=== PATIENT | male | born 1995 | race African-American/Black ===

== ENCOUNTER 2022-06-16 11:50 | Emergency (ER) | payer MEDICARE ==
[~2022-06-16] VITALS: Ht 172.7 cm; Wt 59.0 kg
[2022-06-16 12:06] VITALS: BP 126/76
[2022-06-16] MEDS ORDERED: ONDANSETRON 4MG ODT PO ONE (12:30)
[2022-06-16] MEDS ORDERED: ONDA4TAB50 PO (12:44)
== END 2022-06-16 13:19 | disposition home or self-care (01) ==
LOC: ER 12:42
DX: R11.2 Nausea with vomiting, unspecified (principal); R42 Dizziness and giddiness; H54.7 Unspecified visual loss; H91.90 Unspecified hearing loss, unspecified ear
CPT/HCPCS: 99283; Q0162